=== PATIENT | female | born 1990 | race Two or more races ===

== ENCOUNTER → 2020-04-06 | Outpatient (CLI) | payer OTHER | END | disposition home or self-care (01) | LOC: PRENATAL 13:59 | PROVIDERS: ATTEND Specialist | DX: O35.3XX1 Maternal care for (suspected) damage to fetus from viral disease in mother, fetus 1 (principal); O99.89 Other specified diseases and conditions complicating pregnancy, childbirth and the puerperium; O10.012 Pre-existing essential hypertension complicating pregnancy, second trimester ==

== ENCOUNTER → 2020-06-05 | Outpatient (CLI) | payer OTHER | END | disposition home or self-care (01) | LOC: PRENATAL 11:30 | PROVIDERS: ATTEND Obstetrics & Gynecology Maternal & Fetal Medicine | DX: O36.8131 Decreased fetal movements, third trimester, fetus 1 (principal); O26.843 Uterine size-date discrepancy, third trimester; O24.410 Gestational diabetes mellitus in pregnancy, diet controlled; Z36.89 Encounter for other specified antenatal screening; Z3A.33 33 weeks gestation of pregnancy ==

== ENCOUNTER 2020-07-05 05:35 | Inpatient (IN) | payer OTHER ==
[~2020-07-05] VITALS: Ht 162.6 cm; Wt 2.3 kg
[2020-07-05] MEDS ORDERED: PRENATAL TABLE1 EAC1 PO (06:10)
[2020-07-05] MEDS ORDERED: ASPIR 8181 MG PO (06:11)
== END 2020-07-08 17:13 | disposition home or self-care (01) | DRG 788 ==
LOC: OB/GYN 05:35 → LDR 05:35 → OB/GYN 16:44
PROVIDERS: ADMIT Specialist; ATTEND Specialist
PROC: 4A1HXFZ Monitoring of Products of Conception, Cardiac Rhythm, External Approach (ICD-10-PCS; 2020-07-05)
PROC: 3E033VJ Introduction of Other Hormone into Peripheral Vein, Percutaneous Approach (ICD-10-PCS; 2020-07-05)
PROC: 10D00Z1 Extraction of Products of Conception, Low, Open Approach (ICD-10-PCS; principal; 2020-07-05 14:00)
DX: O76 Abnormality in fetal heart rate and rhythm complicating labor and delivery (principal); O42.02 Full-term premature rupture of membranes, onset of labor within 24 hours of rupture; Z3A.37 37 weeks gestation of pregnancy; Z37.0 Single live birth; Z20.828 Contact with and (suspected) exposure to other viral communicable diseases

== ENCOUNTER 2020-09-19 08:07 | Outpatient (CLI) | payer OTHER ==
[~2020-09-19 08:07] MED LIST: ASPIR 8181 MG PO; PRENATAL TABLE1 EAC1 PO
== END 2020-09-19 08:25 | disposition home or self-care (01) ==
LOC: LAB 08:07
PROVIDERS: ATTEND Internal Medicine Hematology & Oncology
DX: D68.8 Other specified coagulation defects (principal); Q89.3 Situs inversus; K80.10 Calculus of gallbladder with chronic cholecystitis without obstruction; E56.1 Deficiency of vitamin K; D69.1 Qualitative platelet defects

== ENCOUNTER 2022-04-04 15:25 | Outpatient (CLI) | payer OTHER | END 2022-04-04 16:07 | disposition home or self-care (01) | LOC: OBS/DEL 15:25 | PROVIDERS: ATTEND Specialist | DX: O98.512 Other viral diseases complicating pregnancy, second trimester (principal); U07.1 COVID-19; Z3A.22 22 weeks gestation of pregnancy ==

== ENCOUNTER 2022-07-28 07:45 | Inpatient (IN) | payer OTHER ==
[~2022-07-28] VITALS: Ht 162.6 cm; Wt 3.2 kg
[2022-07-28] MEDS ORDERED: DDAVP0.1 MG NASAL (09:23)
[2022-08-01] MEDS ORDERED: DESMOPRESS10 MCG/0.1 (10:03)
== END 2022-08-04 18:35 | disposition home or self-care (01) | DRG 788 ==
LOC: EDSTATUS 07:45 → LDR 07-31 22:35 → OB/GYN 07-31 22:35
PROVIDERS: ADMIT Specialist; ATTEND Specialist
PROC: 4A1HXCZ Monitoring of Products of Conception, Cardiac Rate, External Approach (ICD-10-PCS; 2022-07-31)
PROC: 10D00Z1 Extraction of Products of Conception, Low, Open Approach (ICD-10-PCS; principal; 2022-08-01 02:00)
DX: O34.211 Maternal care for low transverse scar from previous cesarean delivery (principal); Z20.822 Contact with and (suspected) exposure to COVID-19; Z37.0 Single live birth; Z3A.39 39 weeks gestation of pregnancy